=== PATIENT | female | born 1995 | race Caucasian/White ===

== ENCOUNTER 2017-02-20 11:26 | Emergency (ER) | payer OTHER ==
[2017-02-20] MEDS ORDERED: Ketorolac INJ* 30 MG/ML 1 ML VIAL IV ONE (11:57)
--- NOTE | 2017-02-20 12:33 | RAD ---
Indication: Fever. Single frontal view of the chest performed at 1200 hours was reviewed. No prior study is present.. No mediastinal shift is noted. Heart is of normal size and configuration. Lung pace appear clear. IMPRESSION: NO ACTIVE CARDIOPULMONARY DISEASE IS NOTED.
[2017-02-20 12:39] LABS: EBV Response YES
[2017-02-20 13:02] LABS: Hematocrit 38 % (35-47); Hemoglobin 12.6 g/dl (12.0-16.0); Mean Corpuscular HGB Conc 33 g/dl (31-36); Mean Corpuscular Hemoglobin 29 pg (27-31); Mean Corpuscular Volume 89 fL (80-97); Mean Platelet Volume 8 um3 (7.4-10.4); Red Blood Count 4.27 10^6/ul (4.0-5.4); Red Cell Distribution Width 13 % (10.5-15); White Blood Count 5.1 10^3/ul (3.5-10.8)
[2017-02-20 13:06] LABS: ALT 27 U/L (7-52); Albumin 4.1 g/dL (3.2-5.2); Alkaline Phosphatase 59 U/L (34-104); BUN/Creatinine Ratio 9.3 (8-20); Blood Urea Nitrogen 8 mg/dL (6-24); CO2 Carbon Dioxide 25 mmol/L (22-32); Chloride 101 mmol/L (101-111); EGFR African American 107.1 (>60); EGFR Non-African American 83.3 (>60); Globulin 3.4 g/dL (2-4); Glucose 137 mg/dL (70-100); Sodium 133 mmol/L (133-145); Total Protein 7.5 g/dL (6.4-8.9)
[2017-02-20] MEDS: NS 0.9% 1000 ML* 2,000 ML IV ONE (13:23)
[2017-02-20 13:47] LABS: Mono Internal Control QC Line Present
[2017-02-20 14:28] VITALS: BP 101/56
[2017-02-20 14:35] LABS: Urine Bilirubin Negative (Negative); Urine Glucose Negative (Negative); Urine Nitrite Negative (Negative)
[2017-02-20 14:37] LABS: AST 32 U/L (13-39); Anion Gap 7 mmol/L (2-11); Potassium 4.2 mmol/L (3.5-5.0)
--- NOTE | 2017-02-20 14:51 | ED ---
Raz Berumen Benjamin, scribed for Selena Maurer MD on 02/20/17 at 1248 . HPI Febrile Illness - HPI Summary HPI Summary: 21yo female c/o fever for 3 days. Pts temp today was 103.8F but she wasnt able to measure her temp prior to today. Pt also reports chills, generalized ARAGON , body aches, cough,and loss of appetite for 3 days as well. Pt denies sore throat. Was seen at [facility] earlier and had strep throat ruled out. Pt presents a swollen lymph node on her left anterior neck. Pt denies any rash wu in her body but reports recent hiking and potential tick exposure. - History of Current Complaint Chief Complaint: EDFever Time Seen by Provider: 02/20/17 11:36 Hx Obtained From: Patient Onset/Duration: Started Days Ago - 3 days, Still Present Timing: Constant Initial Severity: Mild Current Severity: Mild Pain Intensity: 0 Pain Scale Used: 0-10 Numeric Aggravating Factors: Nothing Alleviating Factors: Nothing Associated Signs and Symptoms: Chills, Myalgia, Other: - ARAGON - Allergy/Home Medications Allergies/Adverse Reactions: Allergies Allergy/AdvReac Type Severity Reaction Status Date / Time No Known Allergies Allergy Verified 02/20/17 11:32 PMH/Surg Hx/FS Hx/Imm Hx Endocrine/Hematology History: Denies: Hx Diabetes Cardiovascular History: Denies: Hx Congenital Heart Disease, Hx Hypercholesterolemia, Hx Hypertension Psychiatric History: Denies: Hx Eating Disorder, Hx of Violent Episodes Against Others Infectious Disease History: No Infectious Disease History: Denies: Traveled Outside the [place] in Last 30 Days - Family History Known Family History: Negative: Cardiac Disease, Diabetes - Social History Occupation: Student Lives: Alone Alcohol Use: None Hx Substance Use: No Substance Use Type: Reports: None Hx Tobacco Use: No Smoking Status (MU): Never Smoked Tobacco Review of Systems Positive: Fever - 103.8F, Chills Eyes: Negative ENT: Negative Cardiovascular: Negative Positive: Cough Gastrointestinal: Negative Genitourinary: Negative Positive: Myalgia Skin: Negative Positive: Headache Psychological: Normal All Other Systems Reviewed And Are Negative: Yes Physical Exam Triage Information Reviewed: Yes Vital Signs On Initial Exam: Initial Vitals Temp Pulse Resp BP Pulse Ox 98.9 F 112 16 103/52 98 02/20/17 11:27 02/20/17 11:27 02/20/17 11:27 02/20/17 11:27 02/20/17 11:27 Vital Signs Reviewed: Yes Appearance: Positive: Well-Appearing, No Pain Distress, Well-Nourished Skin: Positive: Warm, Skin Color Reflects Adequate Perfusion, Dry Head/Face: Positive: Normal Head/Face Inspection Eyes: Positive: EOMI, ALEJANDRO ENT: Positive: Normal ENT inspection Neck: Positive: Supple, Nontender. Negative: No Lymphadenopathy - left anterior lymphadenopathy Respiratory/Lung Sounds: Positive: Clear to Auscultation, Breath Sounds Present Cardiovascular: Positive: RRR Abdomen Description: Positive: Nontender, Soft Bowel Sounds: Positive: Present Musculoskeletal: Positive: Normal, Strength/ROM Intact Neurological: Positive: Sensory/Motor Intact, Alert, Oriented to Person Place, Time, CN Intact II-III Psychiatric: Positive: Affect/Mood Appropriate - [place] Coma Scale Coma Scale Total: 15 Diagnostics - Vital Signs Vital Signs Temp Pulse Resp BP Pulse Ox 02/20/17 12:00 104 97/73 97 02/20/17 11:59 93/59 02/20/17 11:27 98.9 F 112 16 103/52 98 - Laboratory Lab Results: Lab Results 02/20/17 Range/Units 12:25 WBC Pending RBC Pending Hgb Pending Hct Pending MCV Pending MCH Pending MCHC Pending RDW Pending Plt Count Pending MPV Pending Neut % (Auto) Pending Lymph % (Auto) Pending [place] % (Auto) Pending Eos % (Auto) Pending Baso % (Auto) Pending Absolute Neuts (auto) Pending Absolute Lymphs (auto) Pending Absolute Monos (auto) Pending Absolute Eos (auto) Pending Absolute Basos (auto) Pending Absolute Nucleated RBC Pending Nucleated RBC % Pending Monoscreen Pending Result Diagrams: 02/20/17 12:25 02/20/17 12:25 Lab Statement: Any lab studies that have been ordered have been reviewed, and results considered in the medical decision making process. Re-Evaluation - Re-Evaluation First Eval Re-Evaluation Time: 12:35 Comment: Per nurse, pt passed out for few seconds as a nurse was trying to obtain blood through IV. Back to normal baseline after a few seconds. Second Eval Re-Evaluation Time: 14:00 Comment: Discussed lab with the pt, as well as pt's course of treatment and disposition. Course/Dx - Course Course Of Treatment: Reviewed pt's medications list and allergies. Blood pressure noted. all labs normal pt being treated for presumed lyme - Diagnoses Provider Diagnoses: Fever, Suspected Lyme disease Discharge - Discharge Plan Condition: Stable Disposition: HOME Prescriptions: DOXYcycline CAP(*) [DOXYcycline 100MG CAP(*)] 100 mg PO BID #28 cap Patient Education Materials: Lyme Disease (ED) Referrals: [facility] [Primary Care Provider] - The documentation as recorded by the Raz zambrano Benjamin accurately reflects the service I personally performed and the decisions made by me, Selena Maurer MD.
[2017-02-21 11:41] LABS: EBV Capsid Ag IgG Ab Negative (Negative); EBV Capsid Ag IgM Ab Positive (Negative)
[2017-02-22 13:12] LABS: Lyme Disease IgG Ab WB Negative (Negative)
== END 2017-02-20 14:51 | disposition home or self-care (01) ==
LOC: ED 11:26
DX: R50.9 Fever, unspecified (principal); R51 Headache; M79.1 Myalgia; Z32.02 Encounter for pregnancy test, result negative
CPT/HCPCS: 36415; 71010; 80053; 81003; 83605; 84484; 84702; 85025; 85610; 85730; 86308; 86617; 86618; 86664; 86665; 87040; 96361; 96374; 99284; J1885

== ENCOUNTER 2017-02-22 08:43 | Emergency (ER) | payer OTHER ==
--- NOTE | 2017-02-22 09:27 | ED ---
HPI Febrile Illness - HPI Summary HPI Summary: Patient presents with 5 days intermittent chills, sweats and fever with myalgias and ARAGON. Today she awoke with a 104.0 temp and returns d/t fever. Denies sick contacts or travel. Decreased appetite and PO intake. She was seen in the ED 2 days ago and placed on doxycycline for potential lyme based on symptoms. Serologies sent. Monospot sent and returned with positive EBV viral capsid antibodies IgM, but IGG negative. Strep negative. Chest xray negative. Today she states she feels the same, not better or worse. She endorse slightly swollen feeling in her left glands, but denies difficulty swallowing. Denies nausea, vomiting, constipation or diarrhea. Denies urinary symptoms, back pain , neck pain or stiffness. Denies any rashes, but may have been exposed to ticks. Denies chest pain, SOB or weakness. She feels more fatigued than usual , but is ambulating well and denies confusion or visual disturbances. She denies chronic medical problems, takes no medications and has no allergies. She is otherwise healthy. - History of Current Complaint Chief Complaint: EDFever Time Seen by Provider: 02/22/17 09:21 Hx Obtained From: Patient Onset/Duration: Started Days Ago Timing: Intermittent Temperature: 104.0 F Initial Severity: Moderate Current Severity: Moderate Pain Intensity: 1 Pain Scale Used: 0-10 Numeric Aggravating Factors: Nothing Alleviating Factors: Nothing Associated Signs and Symptoms: Headache, Myalgia, Night Sweats - Risk Factors Pseudomonas Risk Factors: Negative Serious Bacterial Infection Risk Factors: Negative - Additional Pertinent History Previous Visit Within 72 Hours for the same complaint: ED - Allergy/Home Medications Allergies/Adverse Reactions: Allergies Allergy/AdvReac Type Severity Reaction Status Date / Time No Known Allergies Allergy Verified 02/22/17 08:51 PMH/Surg Hx/FS Hx/Imm Hx Previously Healthy: Yes Endocrine/Hematology History: Denies: Hx Diabetes Cardiovascular History: Denies: Hx Congenital Heart Disease, Hx Hypercholesterolemia, Hx Hypertension Psychiatric History: Denies: Hx Eating Disorder, Hx of Violent Episodes Against Others Infectious Disease History: Denies: Traveled Outside the [place] in Last 30 Days - Family History Known Family History: Negative: Cardiac Disease, Diabetes - Social History Occupation: Employed Full-time Lives: With Family Alcohol Use: None Hx Substance Use: No Substance Use Type: Reports: None Hx Tobacco Use: No Smoking Status (MU): Never Smoked Tobacco Review of Systems Positive: Fever, Chills, Skin Diaphoresis Eyes: Negative Positive: Sore Throat - swollen LN Positive: Other - tachycardia Respiratory: Negative Gastrointestinal: Negative Positive: no symptoms reported, see HPI Musculoskeletal: Negative Skin: Negative Positive: Headache Psychological: Normal All Other Systems Reviewed And Are Negative: Yes Physical Exam Triage Information Reviewed: Yes Vital Signs On Initial Exam: Initial Vitals Temp Pulse Resp BP Pulse Ox 99.4 F 111 20 127/66 97 02/22/17 08:51 02/22/17 08:51 02/22/17 08:51 02/22/17 08:51 02/22/17 08:51 Completion Of Physical Exam Limited Due To: Dementia Appearance: Positive: Well-Appearing, Well-Nourished Skin: Positive: Warm, Skin Color Reflects Adequate Perfusion Head/Face: Positive: Normal Head/Face Inspection Eyes: Positive: EOMI, ALEJANDRO, Conjunctiva Clear Neck: Positive: Supple, Nontender, No Lymphadenopathy Respiratory/Lung Sounds: Positive: Clear to Auscultation, Breath Sounds Present Cardiovascular: Positive: Normal, RRR Abdomen Description: Positive: Nontender, No Organomegaly, Soft Bowel Sounds: Positive: Present Musculoskeletal: Positive: Normal, Strength/ROM Intact Neurological: Positive: Normal, Sensory/Motor Intact, Alert, Oriented to Person Place, Time, CN Intact II-III, Reflexes Intact, Speech Normal Psychiatric: Positive: Normal, Affect/Mood Appropriate AVPU Assessment: Alert - [place] Coma Scale Best Eye Response: 4 - Spontaneous Best Motor Response: 6 - Obeys Commands Best Verbal Response: 5 - Oriented Diagnostics - Vital Signs Vital Signs Temp Pulse Resp BP Pulse Ox 02/22/17 08:51 99.4 F 111 20 127/66 97 - Laboratory Result Diagrams: 02/22/17 09:30 02/22/17 09:30 Lab Statement: Any lab studies that have been ordered have been reviewed, and results considered in the medical decision making process. Course/Dx - Course Course Of Treatment: Today she is afebrile on arrival at 99.2, however took tylenol prior to arrival in ED. Labs, UA, strep, xray performed 2 days ago and all negative. Monospot for viral IgM ab shows positive. IgG negative so likely acute phase reaction of a viral illness d/t: IgM and IgG antibodies directed against the [place] VCA are usually present at the onset of clinical illness. These may be present in CMV as well. enlarged cervical lymph nodes and tonsillitis symptoms not commonly observed in CMV, which patient expresses both of these symptoms. Also, labs show 95 platelet count, with thrombocytopenia common with mono. Will treat symptomatically for EBV. D/t low potassium, will given 1L fluids in ED. Encouarged foods with potassium. Medications were reveiwed with patient. Encouarged to follow up with PCP or return to ED for worsening symptoms. Return precautions given. Patient understands and agrees with plan. Ok for discharge. Spoke with mother on the phone at 11am with permission from daughter and explained diagnoses and treatment. - Febrile Illness Differential Diagnoses: Bacteremia, Fever of Unknown Origin, Sepsis - Diagnoses Provider Diagnoses: Mononucleosis Discharge - Discharge Plan Condition: Stable Disposition: HOME Patient Education Materials: Mononucleosis (ED) Referrals: [facility] [Primary Care Provider] - Additional Instructions: Tylenol and ibuprofen for any fevers or body aches Rest Drink plenty of fluids If symptoms become worse or you feel your temperature is not improving after medication, come back to ED Please follow up with PCP as needed. Foods high in potassium: Yams White beans leafy vegetables acorn squash yogurt fish avacados mushrooms
[2017-02-22 09:44] LABS: Hematocrit 39 % (35-47); Hemoglobin 12.8 g/dl (12.0-16.0); Mean Corpuscular HGB Conc 33 g/dl (31-36); Mean Corpuscular Hemoglobin 29 pg (27-31); Mean Corpuscular Volume 88 fL (80-97); Mean Platelet Volume 8 um3 (7.4-10.4); Red Blood Count 4.42 10^6/ul (4.0-5.4); Red Cell Distribution Width 13 % (10.5-15); White Blood Count 3.7 10^3/ul (3.5-10.8)
[2017-02-22 09:45] LABS: Add Diff/Slide Review? Slide Review Added; Comments Flag Yes
[2017-02-22 09:49] LABS: Urine Bilirubin Negative (Negative); Urine Glucose Negative (Negative); Urine Nitrite Negative (Negative)
[2017-02-22 09:56] LABS: Albumin 4.1 g/dL (3.2-5.2); BUN/Creatinine Ratio 7.7 (8-20); C Reactive Protein 36.99 mg/L (< 5.00); EGFR African American 119.9 (>60); EGFR Non-African American 93.2 (>60); Globulin 3.7 g/dL (2-4); Potassium 3.1 mmol/L (3.5-5.0); Total Bilirubin 0.6 mg/dL (0.2-1.0); Total Protein 7.8 g/dL (6.4-8.9)
[2017-02-22 10:20] LABS: Add Path Review? YES; Immature Granulocytes 8 % (0-9); Neutrophil % 49 % (38-83); RBC Morphology Normal (Normal); Reactive Lymph % 20 % (0-6)
[2017-02-22 10:21] LABS: EBV Response NO
[2017-02-22 10:31] LABS: Mono Internal Control QC Line Present
[2017-02-22 10:32] LABS: Manual Entry Verification JEA0012
[2017-02-22 11:13] VITALS: BP 112/69
[2017-02-22 11:18] LABS: Erythrocyte Sed Rate 19 mm/Hr (0-14)
== END 2017-02-22 11:12 | disposition home or self-care (01) ==
LOC: ED 08:43
DX: B27.90 Infectious mononucleosis, unspecified without complication (principal); R51 Headache; R50.9 Fever, unspecified; J02.9 Acute pharyngitis, unspecified; R00.0 Tachycardia, unspecified
CPT/HCPCS: 36415; 80053; 81003; 82550; 83605; 85025; 85060; 85652; 86140; 86308; 99283